=== PATIENT | female | born 1985 | race African-American/Black ===

== ENCOUNTER 2018-05-27 08:43 | Inpatient (IN) | payer OTHER ==
[~2018-05-27] VITALS: Ht 160 cm; Wt 56.7 kg
[2018-05-27] MEDS ORDERED: BYSTOLIC10 MG (09:11)
== END 2018-06-01 11:07 | disposition home or self-care (01) | DRG 690 ==
LOC: ER 08:43 → SEC-K 19:34 → MEDJ 19:34
PROC: BW25ZZZ Computerized Tomography (CT Scan) of Chest, Abdomen and Pelvis (ICD-10-PCS; principal; 2018-05-27)
DX: N10 Acute pyelonephritis (principal); I10 Essential (primary) hypertension; N20.0 Calculus of kidney; R80.8 Other proteinuria; R31.0 Gross hematuria; B96.29 Other Escherichia coli [E. coli] as the cause of diseases classified elsewhere